=== PATIENT | male | born 1950 | race Caucasian/White ===

== ENCOUNTER 2020-05-16 18:38 | Emergency (ER) | payer OTHER ==
[~2020-05-16] VITALS: Ht 172.7 cm; Wt 108.9 kg
[2020-05-16 19:21] LABS: HEMATOCRIT 40.4 % (42.0-52.0); MEAN CELL VOLUME 98.3 fl (80.0-94.0); MEAN CORPUSCULAR HGB 30.9 pg (27.0-31.0); MEAN CORPUSCULAR HGB CONC 31.4 g/dl (33.0-37.0); MEAN PLATELET VOLUME 10.5 fl (9.6-12.3); NUCLEATED RED BLOOD CELL 0.2 % (0.0-0.0); PLATELET COUNT AUTOMATED 299 10*3/uL (130-400); RED BLOOD COUNT 4.11 10*6/uL (4.50-5.90); RED CELL DISTRI WIDTH 13.2 % (0-14.5); WHITE BLOOD COUNT 18.2 10*3/uL (4.8-10.8)
[2020-05-16 19:27] LABS: ABG BASE EXCESS -18.5 mmol/L (-2.0-2.0)
[2020-05-16 19:28] LABS: ARTERIAL BLOOD GAS PH 6.849 (7.35-7.45)
[2020-05-16 19:36] LABS: ACT PARTIAL THROMBO TIME 33.3 SECONDS (20.0-32.1); INTERNATIONAL NORM RATIO 1.1 (2.0-3.5)
[2020-05-16 19:43] LABS: BASOPHILS 1 % (0-1); TOTAL CELLS COUNTED 100 #CELLS
[2020-05-16 19:44] LABS: BURR CELLS FEW; PLATELET SUFFICIENCY NORMAL (NORMAL)
[2020-05-16 19:47] LABS: ALBUMIN 3.3 gm/dl (3.1-4.5); CREATININE 1.88 mg/dL (0.70-1.30); POTASSIUM 4.4 mmol/L (3.5-5.1); TOTAL PROTEIN 8.1 gm/dL (6.4-8.2)
[2020-05-16 19:49] LABS: TROPONIN I 0.111 ng/ml (<0.045)
== END 2020-05-16 21:15 | disposition short-term general hospital (02) ==
LOC: ED 18:38
PROVIDERS: Emergency Medicine
DX: I46.9 Cardiac arrest, cause unspecified (principal); I10 Essential (primary) hypertension; Z88.0 Allergy status to penicillin; Z87.891 Personal history of nicotine dependence